=== PATIENT | male | born 1935 | race Caucasian/White ===

== ENCOUNTER 2016-12-07 08:15 | Day surgery (SDC) | payer OTHER ==
[~2016-12-07] VITALS: Ht 165.1 cm; Wt 59.0 kg
[~2016-12-07 08:15] MED LIST: ADULT LOW DOSE81 M1 PO; AMLODIPINE BESYL5 MG PO; AZELASTINE205.5 MCG/ BOTH NARES; COZAAR25 MG PO; FLOMAX0.4 MG PO; MEN'S MULTI-VI1 EACH PO; PRILOSEC20 MG PO; PROAIR HFA8.5 GM IH; SPIRIVA1 INHALATI IH
== END 2016-12-07 18:45 | disposition home or self-care (01) ==
LOC: CATH 08:15
DX: I25.10 Atherosclerotic heart disease of native coronary artery without angina pectoris (principal); I49.3 Ventricular premature depolarization; I49.1 Atrial premature depolarization; I47.1 Supraventricular tachycardia; I10 Essential (primary) hypertension; J43.1 Panlobular emphysema; K21.9 Gastro-esophageal reflux disease without esophagitis; F17.210 Nicotine dependence, cigarettes, uncomplicated; Z79.899 Other long term (current) drug therapy; Z79.82 Long term (current) use of aspirin
CPT/HCPCS: C1769; C1887; J1644; J2250; J3010

== ENCOUNTER 2018-03-08 06:16 | Inpatient (IN) | payer OTHER ==
[~2018-03-08] VITALS: Ht 160 cm; Wt 58.3 kg
[2018-03-08 07:22] LABS: BASOPHIL (%) 0.2 % (0-1); EOSINOPHIL (%) 0 % (0-5); HEMATOCRIT 40.5 % (38.0-50.0); HEMOGLOBIN 13.3 G/DL (12.5-16.6); IMMATURE GRANULOCYTE (%) 0.8 % (0.0-0.7); LYMPHOCYTE (%) 7.6 % (15-42); LYMPHOCYTE COUNT 1.6 K/uL (1.0-2.8); MCH 22.2 PG (29.0-34.0); MCHC 32.8 G/DL (30.0-36.0); MCV 67.5 FL (86-99); MONOCYTE (%) 7.7 % (3-12); MONOCYTE COUNT 1.6 K/uL (0-0.8); NEUTROPHIL (%) 83.7 % (45-76); NEUTROPHIL COUNT 17.7 K/uL (1.8-6.4); PLATELET COUNT 227 K/uL (156-360); RBC DIS.WIDTH-CV 15.8 % (11.8-14.6); RBC DIS.WIDTH-SD 36.2 % (39-53); WHITE BLOOD COUNT 21.2 K/uL (4.1-10.2)
[2018-03-08 07:32] LABS: CHLORIDE 100 MEQ/L (99-109); CREATININE 1.3 MG/DL (0.6-1.3); GFR ESTIMATE (CALCULATED) 56 mL/min/ (58.99-99999); GLUCOSE 173 mg/dL (70-99); POTASSIUM 4.2 MEQ/L (3.7-5.4); SODIUM 136 MEQ/L (136-147); UREA NITROGEN (BUN) 17 mg/dL (9-23)
[2018-03-08 09:31] LABS: TROP-I INTERPRETATION NEGATIVE; TROPONIN-I 0.01 ng/mL (0.0-0.30)
[2018-03-08] MEDS ORDERED: ADVAIR 250/501 DISK IH (09:36)
[2018-03-08] MEDS ORDERED: FISH OIL 1,0001 EAC7 PO (09:36)
[2018-03-08] MEDS ORDERED: LIPITOR20 MG PO (09:36)
[2018-03-08] MEDS ORDERED: TOPROL XL25 MG PO (09:36)
[2018-03-08] MEDS ORDERED: TYLENOL ARTHRI650 MG PO (09:37)
[2018-03-08] MEDS ORDERED: NORVASC2.5 MG PO (09:37)
[2018-03-08] MEDS ORDERED: MEN'S MULTIVI200 MCG PO (09:37)
[2018-03-08 12:09] VITALS: BP 148/70
[2018-03-08 15:05] LABS: TROP-I INTERPRETATION NEGATIVE; TROPONIN-I < 0.01 ng/mL (0.0-0.30)
[2018-03-08 15:30] VITALS: BP 119/61
[2018-03-08 19:33] VITALS: BP 107/56
[2018-03-08 21:24] LABS: TROP-I INTERPRETATION NEGATIVE; TROPONIN-I < 0.01 ng/mL (0.0-0.30)
[2018-03-09 00:05] VITALS: BP 124/63
[2018-03-09 03:33] VITALS: BP 117/66
[2018-03-09 06:45] LABS: CHLORIDE 101 MEQ/L (99-109); CREATININE 1.3 MG/DL (0.6-1.3); GFR ESTIMATE (CALCULATED) 56 mL/min/ (58.99-99999); GLUCOSE 218 mg/dL (70-99); POTASSIUM 4.4 MEQ/L (3.7-5.4); SODIUM 138 MEQ/L (136-147); UREA NITROGEN (BUN) 25 mg/dL (9-23)
[2018-03-09 07:04] VITALS: BP 132/68
[2018-03-09 07:14] LABS: HEMATOCRIT 37.6 % (38.0-50.0); MCH 21.5 PG (29.0-34.0); MCHC 31.9 G/DL (30.0-36.0); MCV 67.4 FL (86-99); PLATELET COUNT 216 K/uL (156-360); RBC DIS.WIDTH-CV 15.6 % (11.8-14.6); RBC DIS.WIDTH-SD 37.2 % (39-53); RED BLOOD COUNT 5.58 M/uL (4.00-5.50); WHITE BLOOD COUNT 17.4 K/uL (4.1-10.2)
[2018-03-09 15:09] VITALS: BP 126/59
[2018-03-09 20:09] VITALS: BP 138/70
[2018-03-10 00:13] VITALS: BP 132/77
[2018-03-10 07:05] LABS: BASOPHIL (%) 0 % (0-1); EOSINOPHIL (%) 0 % (0-5); HEMATOCRIT 37.4 % (38.0-50.0); HEMOGLOBIN 11.9 G/DL (12.5-16.6); IMMATURE GRANULOCYTE (%) 1.2 % (0.0-0.7); LYMPHOCYTE (%) 3.7 % (15-42); LYMPHOCYTE COUNT 0.8 K/uL (1.0-2.8); MCH 21.3 PG (29.0-34.0); MCHC 31.8 G/DL (30.0-36.0); MONOCYTE COUNT 0.6 K/uL (0-0.8); NEUTROPHIL (%) 92.1 % (45-76); NEUTROPHIL COUNT 19.4 K/uL (1.8-6.4); PLATELET COUNT 246 K/uL (156-360); RBC DIS.WIDTH-CV 15.3 % (11.8-14.6); RBC DIS.WIDTH-SD 36.3 % (39-53); RED BLOOD COUNT 5.58 M/uL (4.00-5.50); WHITE BLOOD COUNT 21.1 K/uL (4.1-10.2)
[2018-03-10 07:30] LABS: CHLORIDE 99 MEQ/L (99-109); CREATININE 1.6 MG/DL (0.6-1.3); GFR ESTIMATE (CALCULATED) 44 mL/min/ (58.99-99999); GLUCOSE 226 mg/dL (70-99); POTASSIUM 4.6 MEQ/L (3.7-5.4); SODIUM 136 MEQ/L (136-147)
[2018-03-10 07:33] LABS: UREA NITROGEN (BUN) 39 mg/dL (9-23)
[2018-03-10 07:46] VITALS: BP 121/71
[2018-03-10 15:46] VITALS: BP 125/65
[2018-03-10 23:55] VITALS: BP 130/78
[2018-03-11 06:23] LABS: CHLORIDE 102 MEQ/L (99-109); CREATININE 1.3 MG/DL (0.6-1.3); GFR ESTIMATE (CALCULATED) 56 mL/min/ (58.99-99999); GLUCOSE 212 mg/dL (70-99); SODIUM 139 MEQ/L (136-147); UREA NITROGEN (BUN) 33 mg/dL (9-23)
[2018-03-11 07:32] VITALS: BP 154/74
[2018-03-11] MEDS ORDERED: CYANOCOBALAM1000 MCG PO (09:37)
[2018-03-11] MEDS ORDERED: MEDROL DOSEPAK4 MG PO (09:37)
[2018-03-11] MEDS ORDERED: AUGMENTIN875 MG PO (09:37)
[2018-03-11 10:47] LABS: HEMOGLOBIN A1c (GLYCOHEMOGLOB) 6.2 % (Below 5.7)
== END 2018-03-11 12:01 | disposition home or self-care (01) | DRG 191 ==
LOC: EME → EDBD 06:16 → EME 06:16 → 5SOUTH 08:21 → EDOF 08:21 → ENRESERV 08:23 → 5SOUTH 11:11
PROVIDERS: Emergency Medicine; Internal Medicine
DX: J44.1 Chronic obstructive pulmonary disease with (acute) exacerbation (principal); J20.9 Acute bronchitis, unspecified; D72.829 Elevated white blood cell count, unspecified; I10 Essential (primary) hypertension; K21.9 Gastro-esophageal reflux disease without esophagitis; J44.0 Chronic obstructive pulmonary disease with (acute) lower respiratory infection; Z71.6 Tobacco abuse counseling; I65.21 Occlusion and stenosis of right carotid artery; Z79.82 Long term (current) use of aspirin; Z79.899 Other long term (current) drug therapy; N17.9 Acute kidney failure, unspecified; F17.210 Nicotine dependence, cigarettes, uncomplicated
CPT/HCPCS: 71045; 71250; 80048; 83036; 84484; 85025; 85027; 87040; 87070; 87205; 87449; 87801; 93005; 94640; 94799; 99281; 99285; J0456; J0696; J1644; J2930; J7030